=== PATIENT | male | born 1945 | race Hispanic/Latino ===

== ENCOUNTER 2018-07-13 05:57 | Emergency (ER) | payer OTHER ==
[2018-07-13 06:52] LABS: Absolute Lymphocytes (CBC) 0.9 K/uL (0.7-4.9); Absolute Monocytes 0.8 K/uL (0.1-1.3); Absolute Neutrophil 9.3 K/uL (1.8-8.0); Basophils % 0.4 % (0-1.3); Hematocrit 42.3 % (39.6-49.0); Lymphocytes % 8.1 % (15.3-44.8); MPV 8.9 fL (7.6-11.3); Monocytes % 7.3 % (3.3-12.3); RBC Red Blood Cell Count 4.97 M/uL (4.33-5.43)
[2018-07-13 07:02] LABS: Potassium 4.2 mmol/L (3.5-5.1)
[2018-07-13] MEDS ORDERED: NA CHLORIDE 0.9% 1,000 ML ONE (07:20)
--- NOTE | 2018-07-13 08:30 | RAD REPORT ---
EXAM DESCRIPTION: CT - Stone Protocol - 07/13/2018 8:04 am CLINICAL HISTORY: Flank pain. urinary retention COMPARISON: No comparisons TECHNIQUE: Axial images were obtained without oral or IV contrast. Lack of contrast limits solid org an and vascular assessment. The [id number] spans the entirety of the system partially obscuring uppermost abdomen and lung bases. Coronal reformatted images were obtained and reviewed. All CT scans are performed using dose optimization technique as appropriate and may include automated exposure control or mA/KV adjustment according to patient size. FINDINGS: The lower lung mckinley are clear. Imaged portions of the liver and spleen show no suspicious findings on non-contrast imaging. The panc reas and adrenal glands are normal. No pathologic lymphadenopathy in the abdomen or pelvis. No urinary tract stones or obstructive uropathy. Significant prostatomegaly seen. Shields catheter deco mpresses the urinary bladder. Mild inflammatory fat stranding is seen along the left aspect of the pe lvis. No bowel obstruction, free air, free fluid or abscess. Normal appendix noted.Moderate fat containing right inguinal hernia. No significant bony abnormality. Lumbar degenerative changes are present. IMPRESSION: Prominent prostatomegaly is present. No tract calculi seen.
[2018-07-13 08:56] LABS: Urine Amorphous Sediment 1+ /HPF (NONE SEEN); Urine Bacteria <20 /HPF (NONE SEEN); Urine Culture Reflex Order NOT NEEDED; Urine Mucus 1+ /HPF (NONE SEEN)
[2018-07-13 08:56] LABS: Urine Blood TRACE (NEG); Urine Glucose TRACE (NEG); Urine Protein NEGATIVE (NEG)
--- NOTE | 2018-07-13 08:59 | EDPHYS ---
Physician Documentation [facility] Name: Filemon Lundy Age: 72 yrs Sex: Male : 1945 Arrival Date: 07/13/2018 Time: 05:59 Bed 15 Private MD: Ollie Maxwell E ED Physician Dieter Calix HPI: 07/13 06:37 This 72 yrs old Male presents to ER via Ambulatory with complaints of Urinary kb Problem. 06:37 The patient presents with urinary symptoms, retention. Onset: The symptoms/episode kb began/occurred this morning. Modifying factors: The symptoms are alleviated by nothing, the symptoms are aggravated by pressure. Associated signs and symptoms: Pertinent positives: abdominal pain, Pertinent negatives: constipation, diarrhea, dysuria, fever, hematuria, nausea, vomiting. Severity of symptoms: At their worst the symptoms were moderate, in the emergency department the symptoms are unchanged. The patient has not experienced similar symptoms in the past. The patient has not recently seen a physician. Historical: - Allergies: 06:10 No Known Allergies; rr5 - Home Meds: 06:10 bp medication, cannot recall the name [Active]; rr5 - PMHx: 06:10 Hypertension; rr5 - PSHx: 06:10 Hernia repair; rr5 - Immunization history:: Adult Immunizations up to date. - Social history:: Smoking status: Patient/guardian denies using tobacco, Patient uses alcohol, occasionally. Patient/guardian denies using street drugs. - Ebola Screening: : Patient negative for fever greater than or equal to 101.5 degrees Fahrenheit, and additional compatible Ebola Virus Disease symptoms Patient denies exposure to infectious person Patient denies travel to an Ebola-affected area in the 21 days before illness onset. ROS: 06:36 Constitutional: Negative for fever, chills, and weight loss, ENT: Negative for injury, kb pain, and discharge, Neck: Negative for injury, pain, and swelling, Cardiovascular: Negative for chest pain, palpitations, and edema, Respiratory: Negative for shortness of breath, cough, wheezing, and pleuritic chest pain, Abdomen/GI: Negative for abdominal pain, nausea, vomiting, diarrhea, and constipation, MS/Extremity: Negative for injury and deformity, Skin: Negative for injury, rash, and discoloration, Neuro: Negative for headache, weakness, numbness, tingling, and seizure. 06:36 : Positive for difficulty urinating, unable to urinate since last night. Exam: 06:35 Constitutional: This is a well developed, well nourished patient who is awake, alert, kb and in no acute distress. Head/Face: Normocephalic, atraumatic. ENT: Nares patent. No nasal discharge, no septal abnormalities noted. Tympanic membranes are normal and external auditory canals are clear. Oropharynx with no redness, swelling, or masses, exudates, or evidence of obstruction, uvula midline. Mucous membranes moist. Neck: Trachea midline, no thyromegaly or masses palpated, and no cervical lymphadenopathy. Supple, full range of motion without nuchal rigidity, or vertebral point tenderness. No Meningismus. Chest/axilla: Normal chest wall appearance and motion. Nontender with no deformity. No lesions are appreciated. Cardiovascular: Regular rate and rhythm with a normal S1 and S2. No gallops, murmurs, or rubs. Normal PMI, no JVD. No pulse deficits. Respiratory: Lungs have equal breath sounds bilaterally, clear to auscultation and percussion. No rales, rhonchi or wheezes noted. No increased work of breathing, no retractions or nasal flaring. Back: No spinal tenderness. No costovertebral tenderness. Full range of motion. Skin: Warm, dry with normal turgor. Normal color with no rashes, no lesions, and no evidence of cellulitis. MS/ Extremity: Pulses equal, no cyanosis. Neurovascular intact. Full, normal range of motion. Neuro: Awake and alert, GCS 15, oriented to person, place, time, and situation. Cranial nerves II-XII grossly intact. Motor strength 5/5 in all extremities. Sensory grossly intact. Cerebellar exam normal. Normal gait. 06:35 Abdomen/GI: Inspection: distension, that is mild, in the suprapubic area, Bowel sounds: normal, in all quadrants, Palpation: soft, in all quadrants, moderate abdominal tenderness, in the suprapubic area. Vital Signs: 06:10 BP 169 / 102; Pulse 98; Resp 19; Temp 98.1; Pulse Ox 99% ; Weight 99.79 kg; Height 5 rr5 ft. 9 in. (175.26 cm); Pain 10/10; 06:30 BP 152 / 90; Pulse 84; Resp 17; Pulse Ox 99% ; rr5 06:42 BP 146 / 75; Pulse 77; Resp 16; Pulse Ox 96% ; rr5 06:42 Pain 0/10; rr5 06:53 BP 124 / 79; Pulse 80; Resp 17; Pulse Ox 96% on R/A; Pain 0/10; rr5 06:10 Body Mass Index 32.49 (99.79 kg, 175.26 cm) rr5 MDM: 06:01 Patient medically screened. kb 06:05 Data reviewed: vital signs, nurses notes. Data interpreted: Pulse oximetry: on room air kb is 98 %. Interpretation: normal. 07:02 ED course: Pt reports relief of pain after herrera placement and 900ml of urine output. kb 08:57 Counseling: I had a detailed discussion with the patient and/or guardian regarding: the kb historical points, exam findings, and any diagnostic results supporting the discharge/admit diagnosis, lab results, radiology results, the need for outpatient follow up, a urologist, to return to the emergency department if symptoms worsen or persist or if there are any questions or concerns that arise at home. 07/13 06:06 Order name: CBC with Diff; Complete Time: 06:54 kb 07/13 06:06 Order name: Basic Metabolic Panel; Complete Time: 07:03 kb 07/13 06:30 Order name: Urine Microscopic Only kb 07/13 06:30 Order name: Urine Microscopic Only; Complete Time: 08:57 EDMS 07/13 06:33 Order name: Urine Dipstick--Ancillary (enter results); Complete Time: 08:57 ar5 07/13 07:43 Order name: CT Stone Protocol; Complete Time: 08:38 kb 07/13 06:05 Order name: Bladder Scanner; Complete Time: 06:40 kb 07/13 06:06 Order name: Urine Dipstick-Ancillary (obtain specimen); Complete Time: 06:40 kb 07/13 06:06 Order name: IV Start; Complete Time: 06:40 kb 07/13 06:19 Order name: Herrera; Complete Time: 06:40 kb Administered Medications: 07:09 Drug: NS 0.9% 1000 ml Route: IV; Rate: 1000 ml; Site: right forearm; rr5 Disposition: 07/13/18 08:57 Discharged to Home. Impression: Retention of urine, Enlarged prostate. - Condition is Stable. - Discharge Instructions: Herrera Catheter Care, Adult, [id number]. - Medication Reconciliation Form, Thank You Letter, Antibiotic Education, Prescription Opioid Use form. - Follow up: Emergency Department; When: As needed; Reason: Worsening of condition. Follow up: Fuad Moran MD; When: 1 - 2 days; Reason: Recheck today's complaints. - Notes: Call Dr Moran's office today to schedule an appt. Addendum: 07/15/2018 07:04 Co-signature as Attending Physician, Dieter Calix MD. r n Signatures: Dispatcher [employer] EDMS Yareli Vazquez, JET DYEING MACHINE TENDER-C JET DYEING MACHINE TENDER-Ckb Dieter Calix MD MD rn Pooja Rowland RN RN Davon Hendrickson RN RN rr5 Corrections: (The following items were deleted from the chart) 07/13 10:21 08:57 07/13/2018 08:57 Discharged to Home. Impression: Retention of urine; Enlarged ph prostate. Condition is Stable. Forms are Medication Reconciliation Form, Thank You Letter, Antibiotic Education, Prescription Opioid Use. Follow up: Emergency Department; When: As needed; Reason: Worsening of condition. Follow up: Fuad Moran; When: 1 - 2 days; Reason: Recheck today's complaints. kb
--- NOTE | 2018-07-13 08:59 | ER ---
Nurse's Notes [facility] Name: Filemon Lundy Age: 72 yrs Sex: Male : 1945 Arrival Date: 07/13/2018 Time: 05:59 Bed 15 Private MD: Ollie Maxwell E Diagnosis: Retention of urine;Enlarged prostate Presentation: 07/13 06:10 Presenting complaint: Patient states: i cannot pee, started last night. first time rr5 happened to me. 06:10 Transition of care: patient was not received from another setting of care. Onset of rr5 symptoms was July 12, 2018. Risk Assessment: Do you want to hurt yourself or someone else? Patient reports no desire to harm self or others. Initial Sepsis Screen: Does the patient meet any 2 criteria? No. Patient's initial sepsis screen is negative. Does the patient have a suspected source of infection? No. Patient's initial sepsis screen is negative. Care prior to arrival: None. 06:10 Method Of Arrival: Ambulatory rr5 06:10 Acuity: MEGAN 3 rr5 Historical: - Allergies: 06:10 No Known Allergies; rr5 - Home Meds: 06:10 bp medication, cannot recall the name [Active]; rr5 - PMHx: 06:10 Hypertension; rr5 - PSHx: 06:10 Hernia repair; rr5 - Immunization history:: Adult Immunizations up to date. - Social history:: Smoking status: Patient/guardian denies using tobacco, Patient uses alcohol, occasionally. Patient/guardian denies using street drugs. - Ebola Screening: : Patient negative for fever greater than or equal to 101.5 degrees Fahrenheit, and additional compatible Ebola Virus Disease symptoms Patient denies exposure to infectious person Patient denies travel to an Ebola-affected area in the 21 days before illness onset. Screenin:40 Abuse screen: Denies threats or abuse. Denies injuries from another. Nutritional rr5 screening: No deficits noted. Tuberculosis screening: No symptoms or risk factors identified. Fall Risk IV access (20 points). Total Salcedo Fall Scale indicates No Risk (0-24 pts). Assessment: 06:10 General: Appears in no apparent distress. uncomfortable, Behavior is calm, cooperative, rr5 appropriate for age. Pain: Complains of pain in suprapubic area Pain does not radiate. Pain currently is 10 out of 10 on a pain scale. Quality of pain is described as aching, Pain began gradually, Is continuous. Neuro: Level of Consciousness is awake, alert, obeys commands, Oriented to person, place, time, situation, Appropriate for age. Cardiovascular: Capillary refill < 3 seconds Patient's skin is warm and dry. Respiratory: Airway is patent is compromised Respiratory effort is even, unlabored, Respiratory pattern is regular, symmetrical. GI: No signs and/or symptoms were reported involving the gastrointestinal system. : Urine is orange colored Reports inability to void. EENT: No signs and/or symptoms were reported regarding the EENT system. Derm: Skin is intact, Skin temperature is warm. Musculoskeletal: Capillary refill < 3 seconds, Range of motion: intact in all extremities. 06:40 Reassessment: Patient appears in no apparent distress at this time. Patient is alert, rr5 oriented x 3, equal unlabored respirations, skin warm/dry/pink. no more pain as verbalized by the patient Patient denies pain at this time. Patient states feeling better. Patient states symptoms have improved. 08:00 Reassessment: Patient appears in no apparent distress at this time. Patient is alert, ph oriented x 3, equal unlabored respirations, skin warm/dry/pink. 09:00 Reassessment: Patient appears in no apparent distress at this time. Patient is alert, ph oriented x 3, equal unlabored respirations, skin warm/dry/pink. Approx 1500 mL collected from drainage bag Patient states feeling better. Patient states symptoms have improved. 10:17 Reassessment: Patient appears in no apparent distress at this time. Patient is alert, ph oriented x 3, equal unlabored respirations, skin warm/dry/pink. Shields changed to leg bag, pt instructed to call Dr Moran's office today for follow-up, also educated on catheter care and when to return to ED if necessary Patient states feeling better. Patient states symptoms have improved. Vital Signs: 06:10 BP 169 / 102; Pulse 98; Resp 19; Temp 98.1; Pulse Ox 99% ; Weight 99.79 kg; Height 5 rr5 ft. 9 in. (175.26 cm); Pain 10/10; 06:30 BP 152 / 90; Pulse 84; Resp 17; Pulse Ox 99% ; rr5 06:42 BP 146 / 75; Pulse 77; Resp 16; Pulse Ox 96% ; rr5 06:42 Pain 0/10; rr5 06:53 BP 124 / 79; Pulse 80; Resp 17; Pulse Ox 96% on R/A; Pain 0/10; rr5 06:10 Body Mass Index 32.49 (99.79 kg, 175.26 cm) rr5 ED Course: 05:59 Patient arrived in ED. do 05:59 Ollie Maxwell MD is Private Physician. do 06:01 Yareli Vazquez FNP-C [facility]. kb 06:01 Dieter Calix MD is Attending Physician. kb 06:10 Patient has correct armband on for positive identification. Placed in gown. Bed in low rr5 position. Call light in reach. Side rails up X2. Pulse ox on. NIBP on. Warm blanket given. 06:12 Davon Valdez, RN is Primary Nurse. rr5 06:13 Triage completed. rr5 06:15 Bladder scan completed. 649ml. rr5 06:20 Shields cath inserted, using sterile technique, 16 Fr., by mn, balloon inflated, to rr5 gravity drainage, urine specimen collected. returned clear orange. Patient tolerated well. 06:30 Inserted saline lock: 20 gauge in right forearm, using aseptic technique. Blood rr5 collected. 06:40 Urine Microscopic Only Sent. rr5 08:06 CT Stone Protocol In Process Unspecified. EDMS 08:57 Fuad Moran MD is Referral Physician. kb 09:03 Arm band placed on. ph 10:20 No provider procedures requiring assistance completed. IV discontinued, intact, ph bleeding controlled, No redness/swelling at site. Pressure dressing applied. Administered Medications: 07:09 Drug: NS 0.9% 1000 ml Route: IV; Rate: 1000 ml; Site: right forearm; rr5 Intake: 06:59 orange urine rr5 Output: 06:59 Urine: 900ml (Shields); Total: 900ml. rr5 06:59 orange urine rr5 Outcome: 08:57 Discharge ordered by . kb 10:21 Discharged to home ambulatory, with family. ph 10:21 Condition: improved 10:21 Discharge instructions given to patient, family, Instructed on discharge instructions, follow up and referral plans. catheter care Demonstrated understanding of instructions, follow-up care. 10:21 Patient left the ED. ph Signatures: Dispatcher [employer] Yareli Yanez, JEEVAN LORENZ-Pooja Vela RN RN Emily Workman Raymond RN RN rr5
== END 2018-07-13 10:21 | disposition home or self-care (01) ==
LOC: ER 05:57
DX: N40.1 Benign prostatic hyperplasia with lower urinary tract symptoms (principal); R33.9 Retention of urine, unspecified; I10 Essential (primary) hypertension
CPT/HCPCS: 85025; 80048; 36415; 76377; 74176; 51702; 99284; J7030; 81003; 81015

== ENCOUNTER 2020-02-02 10:00 | Emergency (ER) | payer OTHER ==
--- OUTSIDE RECORDS SUMMARY | 2020-02-02 10:02 | XMS REPORT | Continuity of Care Document ---
:1945 Author Organization [facility] t Address [address] [place] [address] Care Team Providers Name Role Phone Unavailable Unavailable Unavailable Problems This patient has no known problems. Allergies, Adverse Reactions, Alerts This patient has no known allergies or adverse reactions. Medications Ordered Filled Start Stop Current Ordering Indication Dosage Frequency Signature Comments Components Source Medication Medication Date Date Medication? Clinician (SIG) Name Name Sofi Farah 2019- No [facility]ette [facility] [place] [facility] Bactrim Bactrim Yes Lynette [address] [facility] [place] [facility] Cefdinir Cefdinir Yes Lynette as [facility] [place] [facility] Tamsulosin Tamsulosin Yes Lynette [address] [facility] HCl HCl Leeann kes - [facility] Procedures This patient has no known procedures. Encounters Start End Encounter Admission Attending Care Care Encounter Source Date/Time Date/Time Type Type Clinicians Facility Department ID 2020-01-27 2020-01-27 Outpatient [facility] [id number] [facility] 2019-09-13 2019-09-13 [facility] [id number] [facility] 10[facility]00 10[facility]00 t Specialty/U Jacquie kes - [facility] 2019-09-02 2019-09-02 [facility] [id number] [facility] 09:30[facility]00 09:30:00 t Specialty/U Jacquie kes - [facility] Outpat[facility] ent Clinics 2019-09-01 2019-09-01 [facility] [id number] [facility] 15:24:00 15:24:00 t Specialty/U Jacquie kes - [facility] Outpat[facility] ent Clinics 2019-09-01 2019-09-01 [facility] [id number] [facility] 10:49:00 10:49:00 t Specialty/U Jacquie kes - [facility] l Clinic Outpati ent Clinics 2019-08-30 2019-08-30 [facility] [id number] [facility] 13:15:00 13:15:00 t Specialty/U Jacquie kes - [facility] l Clinic Outpati ent Clinics 2019-07-05 2019-07-05 [facility] [id number] [facility] 13:30:00 13:30:00 t Specialty/U Jacquie kes - [facility] l Clinic Outpati ent Clinics 2019-06-28 2019-06-28 [facility] [id number] [address] 10:06:00 10:06:00 t Specialty/U Jacquie kes - [facility] l Clinic Outpati ent Clinics 2019-05-17 2019-05-17 [facility] [id number] [facility] [address] 13:00:00 13:00:00 t Specialty/U Jacquie kes - [facility] l Clinic Outpati ent Clinics Results This patient has no known results.
--- OUTSIDE RECORDS SUMMARY | 2020-02-02 10:03 | XMS REPORT ---
:1945 Author Organization [facility] Address [address] [place] [address] Care Team Providers Name Role Phone Leeann Mccormack [phone] PROBLEMS No Information ALLERGIES No Known Allergies ENCOUNTERS from 1945 to 2020-01-27 Encounter Location Date Provider Diagnosis [facility] [address] [facility] Dec, Lynette Bradshaw Incomple te bladder Specialty/Urology [address] [facility] R33.[address] [facility] [id number] IMMUNIZATIONS No Information SOCIAL HISTORY Sex Assigned At : Social History Observation Description Sex Assigned At Unknown REASON FOR REFERRAL No Information VITAL SIGNS No information MEDICATIONS Medication SIG (Take, Route, Frequency, Start Date End Date Status Duration) Cefdinir 300 MG as directed Orally BID for 7 days Active Bactrim 400-80 MG 1 tablet Orally Once a day for 10 Active day(s) Tamsulosin HCl 0.4 MG 1 capsule Orally Once a day for 90 Active days PROCEDURES No Information RESULTS No Results REASON FOR VISIT No Information MEDICAL (GENERAL) HISTORY Type Description Date Medical History HTN Surgical History Hernia Repair 2008 Goals Section No Information Health Concerns No Information MEDICAL EQUIPMENT No Information MENTAL STATUS No Information FUNCTIONAL STATUS No Information ASSESSMENTS Encounter Date Diagnosis Notes Dec, Incomplete bladder emptying (ICD-10 - R3 3.9) PLAN OF TREATMENT Medication Medication Name Sig Start Date Stop Date Tamsulosin HCl 0.4 MG 1 capsule Orally Once a day for 90 days Insurance Providers Payer Name Payer Payer Insured Name Patient Coverage Covera ge Address Phone Relationship to Start Date End Date Insured [employer] [phone] Filemon Lundy [facility] [id number] [facility] [place] Replace [phone]
[2020-02-02 11:06] LABS: Absolute Lymphocytes (CBC) 2.2 K/uL (0.7-4.9); Basophils % 1.1 % (0-1.3); Hematocrit 43.7 % (39.6-49.0); Lymphocytes % 25.3 % (15.3-44.8); MPV 8.8 fL (7.6-11.3); RBC Red Blood Cell Count 5.25 M/uL (4.33-5.43)
[2020-02-02 11:08] LABS: Protime INR 0.97
[2020-02-02 11:12] LABS: Potassium 4.2 mmol/L (3.5-5.1)
--- NOTE | 2020-02-02 11:17 | RAD REPORT ---
EXAM DESCRIPTION: CT - Head Brain Wo Cont - 02/02/2020 11:07 am CLINICAL HISTORY: confusion COMPARISON: No comparisons TECHNIQUE: Axial 5 mm thick images of the head were obtained without IV contrast. All CT scans are performed using dose optimization technique as appropriate and may include automated exposure control or mA/KV adjustment according to patient size. FINDINGS: A 3.5 centimeter diameter left parietal intraparenchymal hematoma is present. A separate o r discrete mass is not identifiable. There is localized mass effect but no midline shift. No other ar ea of parenchymal hemorrhage. No cortical infarction, cortical edema or sulcal effacement. Atrophy ch anges are minimal. Ventricles are in proportion. No abnormal extra-axial fluid collections. Mastoid air cells are clear. Ethmoid air cell and sphenoid sinus mucosal thickening seen. There are c hronic sinusitis changes of the sphenoid sinus. No acute globe finding. No acute bony findings. Findings telephoned to the referring physician 11:13 a.m. IMPRESSION: A 3.5 centimeter intraparenchymal hematoma is present within the left parietal lobe. A discrete or separate mass or vascular malformation is not identifiable.
[2020-02-02 11:31] LABS: Urine Bacteria <20 /HPF (NONE SEEN); Urine RBC <5 /HPF (NONE SEEN)
[2020-02-02 11:32] LABS: Urine Culture Reflex Order NOT NEEDED; Urine Mucus 2+ /HPF (NONE SEEN)
--- NOTE | 2020-02-02 11:46 | ER ---
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 I was trying to write a note, and my body just wouldn't do it." Pt and states that this has been ongoing since Friday. Denies pain, numbness and/ or tingling.". Coronavirus screen: Client denies travel out of the [place] in the last 14 days. Ebola Screen: Patient denies exposure to infectious person. Patient denies travel to an Ebola-affected area in the 21 days before illness onset. Initial Sepsis Screen: Does the patient meet any 2 criteria? No. Patient's initial sepsis screen is negative. Does the patient have a suspected source of infection? No. Patient's initial sepsis screen is negative. Risk Assessment: Do you want to hurt yourself or someone else? Patient reports no desire to harm self or others. Onset of symptoms was January 29, 2020. 10:06 Method Of Arrival: Ambulatory ss 10:06 Acuity: MEGAN 3 ss 11:20 Acuity: MEGAN 2 ca1 Historical: - Allergies: 10:09 No Known Allergies; ss - PMHx: 10:09 Hypertension; High Cholesterol; enlarged prostate; ss - PSHx: 10:09 Hernia repair; ss - Immunization history:: Adult Immunizations up to date. - Social history:: Smoking status: Patient denies any tobacco usage or history of. - Family history:: not pertinent. - Hospitalizations: : No recent hospitalization is reported. Screenin:15 Abuse screen: Denies threats or abuse. Denies injuries from another. Nutritional ca1 screening: No deficits noted. Tuberculosis screening: No symptoms or risk factors identified. Fall Risk IV access (20 points). Assessment: 10:15 General: Appears in no apparent distress. comfortable, Behavior is calm, cooperative, ca1 appropriate for age. Pain: Denies pain. Neuro: Level of Consciousness is awake, alert, obeys commands, Oriented to person, place, time, situation, Appropriate for age. Cardiovascular: Heart tones S1 S2 present Capillary refill < 3 seconds Patient's skin is warm and dry. Rhythm is sinus rhythm. Respiratory: Airway is patent Respiratory effort is even, unlabored, Respiratory pattern is regular, symmetrical, Breath sounds are clear bilaterally. GI: Abdomen is flat, non-distended, Bowel sounds present X 4 quads. Abd is soft and non tender X 4 quads. : No signs and/or symptoms were reported regarding the genitourinary system. EENT: No signs and/or symptoms were reported regarding the EENT system. Derm: Skin is intact, is healthy with good turgor, Skin is pink, warm \\T\\ dry. Musculoskeletal: Circulation, motion, and sensation intact. Capillary refill < 3 seconds. 11:02 Reassessment: Pt to MRI and CT at this time. ca1 11:38 Reassessment: Patient appears in no apparent distress at this time. Patient and/or ca1 family updated on plan of care and expected duration. Pain level reassessed. Patient is alert, oriented x 3, equal unlabored respirations, skin warm/dry/pink. 12:00 Reassessment: BP at 128/73. Cardene drip put on hold per protocol. ca1 12:00 Reassessment: Called report to SILVIO Hernandez. ca1 12:10 Reassessment: BP at 150/83. Cardene drip resumed per protocol. ca1 12:52 Reassessment: Patient appears in no apparent distress at this time. No changes from ca1 previously documented assessment. Patient and/or family updated on plan of care and expected duration. Pain level reassessed. Patient is alert, oriented x 3, equal unlabored respirations, skin warm/dry/pink. Vital Signs: 10:06 BP 159 / 91; Pulse 96; Resp 17; Temp 98.3(O); Pulse Ox 99% on R/A; Weight 95.25 kg; ss Height 5 ft. 9 in. (175.26 cm); Pain 0/10; 11:38 BP 144 / 68; Pulse 76; Resp 18 S; Pulse Ox 98% on R/A; ca1 11:50 BP 134 / 81; Pulse 76; Resp 17 S; Pulse Ox 99% on R/A; ca1 12:00 BP 128 / 73; Pulse 79; Resp 16 S; Pulse Ox 99% on R/A; ca1 12:10 BP 154 / 83; Pulse 80; Resp 15 S; Pulse Ox 100% on R/A; ca1 12:20 BP 140 / 81; Pulse 76; Resp 16 S; Pulse Ox 99% on R/A; ca1 12:30 BP 143 / 72; Pulse 68; Resp 16 S; Pulse Ox 99% on R/A; ca1 12:40 BP 143 / 72; Pulse 68; Resp 16 S; Pulse Ox 99% on R/A; ca1 12:50 BP 134 / 82; Pulse 68; Resp 17 S; Pulse Ox 98% on R/A; ca1 10:06 Body Mass Index 31.01 (95.25 kg, 175.26 cm) ss Alfredo Coma Score: 11:38 Eye Response: spontaneous(4). Verbal Response: oriented(5). Motor Response: obeys ca1 commands(6). Total: 15. NIH Stroke Scale Scores: 11:31 NIHSS Score: 0 ostomy rn Course: 10:01 Patient arrived in ED. as 10:08 Triage completed. ss 10:09 Arm band placed on right wrist. ss 10:15 Patient has correct armband on for positive identification. Placed in gown. Bed in low ca1 position. Call light in reach. Side rails up X2. potline monitor on. Pulse ox on. NIBP on. Warm blanket given. 10:16 Dieter Calix MD is Attending Physician. rn 10:34 Renee Marie, SILVIO is Primary Nurse. ca1 10:46 Initial lab(s) drawn, by sd, sent to lab. Inserted saline lock: 20 gauge in right ca1 antecubital area, using aseptic technique. Blood collected. 11:05 CT Head Brain wo Cont In Process Unspecified. EDMS 11:17 Brain Wo Cont MRI In Process Unspecified. EDMS 11:36 initiated transfer to [facility]. bd 11:45 Inserted saline lock: 22 gauge in right forearm, using aseptic technique. ca1 12:53 No provider procedures requiring assistance completed. Patient transferred, IV remains ca1 in place. Administered Medications: 11:40 Drug: niCARdipine (25mg/250ml) 2.5 mg/hr Route: IV; Rate: calculated rate; Site: right ca1 antecubital; 12:50 Follow up: Response: No adverse reaction; Blood pressure is lowered; IV Status: ca1 Infusion continued upon transfer Outcome: 11:45 ER care complete, transfer ordered by . silvio 12:53 Transferred by ground EMS to [facility], Transfer form completed. ca1 X-rays sent w/ patient. 12:53 Condition: stable 12:53 Instructed on the need for transfer. 12:55 Patient left the ED. ca1 NIH Stroke Scale - NIH Stroke Score Date: 02/02/2020 Time: 11:31 Total Score = 0 1a. Level of Consciousness (LOC) - 0(Alert) 1b. Level of Consciousness (LOC) (Year \\T\\ Age) - 0(Both) 1c. LOC Commands (Open \\T\\ Closes Eyes/Computer Systems Consultant) - 0(Both) 2. Best Gaze (Lateral Gaze Paresis) - 0(Normal) 3. Visual Field Loss - 0(No visual loss) 4. Facial Palsy - 0(Normal) 5a. Left Arm: Motor (10-second hold) - 0(No drift) 5b. Right Arm: Motor (10-second hold) - 0(No drift) 6a. Left Leg: Motor (5-second hold - always test supine) - 0(No drift) 6b. Right Leg: Motor (5-second hold - always test supine) - 0(No drift) 7. Limb Ataxia (finger/nose \\T\\ heel/melchor - test with eyes open) - 0(Absent) 8. Sensory Loss (pinprick arms/legs/face) - 0(Normal) 9. Best Language: Aphasia (description/naming/reading) - 0(No aphasia) 10. Dysarthria (speech clarity - read or repeat words) - 0(Normal) 11. Extinction and Inattention (visual/tactile/auditory/spatial/personal) - 0(No abnormality) Initials: rn Signatures: Dispatcher [employer] EDMS Ayana Dubois Amelia as Nieto, Roman, MD MD rn Smirch, Shelby, RN RN ss Acob, Cheryl, RN RN ca1 Corrections: (The following items were deleted from the chart) 12:08 12:00 Reassessment: BP at 128/73. Cardene drip put on hold ca1 ca1
--- NOTE | 2020-02-02 11:46 | EDPHYS ---
Physician Documentation [facility] Name: Filemon Lundy Age: 74 yrs Sex: Male : 1945 Arrival Date: 02/02/2020 Time: 10:01 Bed 14 Private MD: ED Physician Dieter Calix HPI: 02/01 11:28 This 74 yrs old Male presents to ER via Ambulatory with complaints of Doesn't rn Feel Right. 11:41 The patient's problem is reported as altered mental status, confused. Onset: The rn symptoms/episode began/occurred 4 day(s) ago. Duration: The episodes are intermittent. The symptoms are alleviated by nothing. The symptoms are aggravated by nothing. Severity of symptoms: At their worst the symptoms were mild in the emergency department the symptoms are unchanged. The patient has not experienced similar symptoms in the past. Reports since Friday has been having difficulty performing simple tasks, like making coffee and working water faucet, denies focal weakness/numbness/vision changes/speech changes. NO trauma. No blood thinners. . Historical: - Allergies: 10:09 No Known Allergies; ss - PMHx: 10: Hypertension; High Cholesterol; enlarged prostate; ss - PSHx: 10:09 Hernia repair; ss - Immunization history:: Adult Immunizations up to date. - Social history:: Smoking status: Patient denies any tobacco usage or history of. - Family history:: not pertinent. - Hospitalizations: : No recent hospitalization is reported. ROS: 11:41 Constitutional: Negative for fever, chills, and weight loss, Eyes: Negative for injury, rn pain, redness, and discharge, Neck: Negative for injury, pain, and swelling, Cardiovascular: Negative for chest pain, palpitations, and edema, Respiratory: Negative for shortness of breath, cough, wheezing, and pleuritic chest pain, Abdomen/GI: Negative for abdominal pain, nausea, vomiting, diarrhea, and constipation, MS/Extremity: Negative for injury and deformity, Skin: Negative for injury, rash, and discoloration, Neuro: Negative for headache, weakness, numbness, tingling, and seizure. Exam: 11:41 Radiologist reports: 3.5 cm left parietal hematoma rn 11:41 Constitutional: This is a well developed, well nourished patient who is awake, alert, and in no acute distress. Head/Face: Normocephalic, atraumatic. Eyes: Pupils equal round and reactive to light, extra-ocular motions intact. Lids and lashes normal. Conjunctiva and sclera are non-icteric and not injected. Cornea within normal limits. Periorbital areas with no swelling, redness, or edema. Cardiovascular: Regular rate and rhythm. No pulse deficits. Respiratory: No increased work of breathing, no retractions or nasal flaring. Abdomen/GI: Soft, non-tender Skin: Warm, dry with normal turgor. Normal color with no rashes, no lesions, and no evidence of cellulitis. MS/ Extremity: Pulses equal, no cyanosis. Neurovascular intact. Full, normal range of motion. Equal circumference. Neuro: Awake and alert, GCS 15, oriented to person, place, time, and situation. Cranial nerves II-XII grossly intact. Motor strength 5/5 in all extremities. Sensory grossly intact. Cerebellar exam normal. Normal gait. Vital Signs: 10:06 BP 159 / 91; Pulse 96; Resp 17; Temp 98.3(O); Pulse Ox 99% on R/A; Weight 95.25 kg; ss Height 5 ft. 9 in. (175.26 cm); Pain 0/10; 11:38 BP 144 / 68; Pulse 76; Resp 18 S; Pulse Ox 98% on R/A; ca1 11:50 BP 134 / 81; Pulse 76; Resp 17 S; Pulse Ox 99% on R/A; ca1 12:00 BP 128 / 73; Pulse 79; Resp 16 S; Pulse Ox 99% on R/A; ca1 12:10 BP 154 / 83; Pulse 80; Resp 15 S; Pulse Ox 100% on R/A; ca1 12:20 BP 140 / 81; Pulse 76; Resp 16 S; Pulse Ox 99% on R/A; ca1 12:30 BP 143 / 72; Pulse 68; Resp 16 S; Pulse Ox 99% on R/A; ca1 12:40 BP 143 / 72; Pulse 68; Resp 16 S; Pulse Ox 99% on R/A; ca1 12:50 BP 134 / 82; Pulse 68; Resp 17 S; Pulse Ox 98% on R/A; ca1 10:06 Body Mass Index 31.01 (95.25 kg, 175.26 cm) NIH Stroke Scale Scores: 11:31 NIHSS Score: 0 rn Alfredo Coma Score: 11:38 Eye Response: spontaneous(4). Verbal Response: oriented(5). Motor Response: obeys ca1 commands(6). Total: 15. MDM: 10:16 Patient medically screened. rn 11:28 ED course: Notified by Dr. Hernandez that patient has left parietal intraparenchymal rn bleed, 3.5 cm, no shift. Pt in MRI, plan to recheck BP and if still elevated will start cardene. . 11:44 Differential diagnosis: CVA, TIA, metabolic disorder. Data reviewed: vital signs, rn nurses notes, lab test result(s), radiologic studies, CT scan, MRI, and as a result, I will admit patient. Counseling: I had a detailed discussion with the patient and/or guardian regarding: the historical points, exam findings, and any diagnostic results supporting the discharge/admit diagnosis, lab results, radiology results, the need to transfer to another facility, for higher level of care, [facility] does not immediately have the required specialist. Admission orders: after a detailed discussion of the patient's condition and case, the admit orders are written by me. ED course: Accepted for transfer to neuro ICU at [facility] for hemorrhagic CVA left parietal lobe.. 02/01 10:25 Order name: CBC with Diff; Complete Time: 11:30 rn 02/01 10:25 Order name: Basic Metabolic Panel; Complete Time: 11:30 rn 02/01 10:25 Order name: Protime (+inr); Complete Time: 11:30 rn 02/01 10:25 Order name: Ptt, Activated; Complete Time: 11:30 rn 02/01 10:25 Order name: Urine Microscopic Only; Complete Time: 11:39 rn 02/01 11:06 Order name: Urine Dipstick--Ancillary (enter results) bd 02/01 10:25 Order name: IV Start; Complete Time: 10:51 rn 02/01 10:25 Order name: CT Head Brain wo Cont; Complete Time: 11:30 rn 02/01 10:25 Order name: Brain Wo Cont MRI rn 02/01 10:25 Order name: Urine Dipstick-Ancillary (obtain specimen); Complete Time: 11:02 rn 02/01 10:25 Order name: EKG; Complete Time: 10:25 rn 02/01 10:25 Order name: EKG - Nurse/Tech; Complete Time: 11:02 rn Administered Medications: 11:40 Drug: niCARdipine (25mg/250ml) 2.5 mg/hr Route: IV; Rate: calculated rate; Site: right ca1 antecubital; 12:50 Follow up: Response: No adverse reaction; Blood pressure is lowered; IV Status: ca1 Infusion continued upon transfer Disposition: 02/02/20 11:[address] [facility]. 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 - Reason for transfer: Higher level of care. - Accepting physician is . - Condition is Stable. - Problem is new. - Symptoms are unchanged. NIH Stroke Scale - NIH Stroke Score Date: 02/02/2020 Time: 11:31 Total Score = 0 1a. Level of Consciousness (LOC) - 0(Alert) 1b. Level of Consciousness (LOC) (Year \T\ Age) - 0(Both) 1c. LOC Commands (Open \T\ Closes Eyes/Assistant Farm Operations Manager) - 0(Both) 2. Best Gaze (Lateral Gaze Paresis) - 0(Normal) 3. Visual Field Loss - 0(No visual loss) 4. Facial Palsy - 0(Normal) 5a. Left Arm: Motor (10-second hold) - 0(No drift) 5b. Right Arm: Motor (10-second hold) - 0(No drift) 6a. Left Leg: Motor (5-second hold - always test supine) - 0(No drift) 6b. Right Leg: Motor (5-second hold - always test supine) - 0(No drift) 7. Limb Ataxia (finger/nose \T\ heel/melchor - test with eyes open) - 0(Absent) 8. Sensory Loss (pinprick arms/legs/face) - 0(Normal) 9. Best Language: Aphasia (description/naming/reading) - 0(No aphasia) 10. Dysarthria (speech clarity - read or repeat words) - 0(Normal) 11. Extinction and Inattention (visual/tactile/auditory/spatial/personal) - 0(No abnormality) Initials: rn Signatures: Dispatcher [employer] EDDieter Mckeon MD MD rn Smirch, Shelby, RN RN ss Renee Marie RN RN ca1 Corrections: (The following items were deleted from the chart) 12:55 11:45 02/02/2020 11:45 Transfer ordered to [address] 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 Reason for transfer: Higher level of care. Accepting physician is . Condition is Stable. Problem is new. Symptoms are unchanged. rn
[2020-02-02] MEDS ORDERED: Nicardipine/NS 25 MG/250 ML KIT IV ONE (11:51)
--- NOTE | 2020-02-02 12:12 | RAD REPORT ---
EXAM DESCRIPTION: MRI - Brain Wo Cont - 02/02/2020 11:29 am CLINICAL HISTORY: confusion, abnormal CT study with left parietal intraparenchymal hemorrhage COMPARISON: Head Brain Wo Cont dated 02/02/2020 TECHNIQUE: Sagittal T1-weighted images were obtained along with axial PD, heavily T2-weighted and T2 -FLAIR images. Axial DWI and ADC mapping sequences were also obtained along with coronal heavily T2-w eighted images. Coronal T2 hemo sequence obtained. FINDINGS: Approximately 4 centimeter left parietal intraparenchymal hemorrhage is present. On T1 malik ghted imaging the blood is primarily hyperintense. There are central areas of more isointense to brai n parenchyma. Surrounding rim of hypointense tissue seen. The surrounding rim is hyperintense on T2/I R sequencing. The intraparenchymal hemorrhage is heterogeneous Jb isointense to hyperintense on prot on density imaging and mostly hypointense on T2/T2 IR sequencing. The mass is hypointense on the diff usion weighted sequencing and heterogeneous on ADC mapping. Diffusion-weighted imaging shows no acute infarction. No underlying vascular malformation or brain pa renchymal mass identifiable. Localized mass effect and edema are present at the hemorrhage site. No m idline shift. Scattered mild chronic ischemic changes in the cerebral white matter. Atrophy is mild. Ventricles are in proportion to volume loss. Muhammad-matter/white matter junction is preserved. Signal v oids are seen as a normal finding in the major intracranial vessels. No globe or orbital content abnormality. No sella or supra sella Mastoid air cells are clear peer IMPRESSION: Left parietal lobe 4 centimeter intraparenchymal hemorrhage. No associated vascular malf ormation or mass lesions seen. No acute infarction on diffusion-weighted imaging. Patient has mild atrophy and mild chronic ischemic change.
[2020-02-02 13:23] VITALS: TEMP 98.3
[2020-02-02 13:40] VITALS: BP 134/82; O2SAT 98
[2020-02-02 15:34] LABS: Urine Blood NEGATIVE (NEG); Urine Glucose NEGATIVE (NEG); Urine Protein NEGATIVE (NEG); Urine Specific Gravity 1.025 (1.005-1.030)
--- NOTE | 2020-02-03 07:35 | EKG ---
Test Date: 2020-02-02 Test Time: 10:55:10 Pre K Teacher: SHEBA MEASUREMENT RESULTS: Intervals: Rate: 75 WA: 156 QRSD: 80 QT: 346 QTc: 386 [place]: P: 62 WA: 156 QRS: 24 T: 41 INTERPRETIVE STATEMENTS: Normal sinus rhythm Normal ECG No previous ECG available for comparison Electronically Signed On 02-03-20 07:32:34 DRONE PILOT by Jean Claude Huang
== END 2020-02-02 12:55 | disposition short-term general hospital (02) ==
LOC: ER 10:00
DX: I61.9 Nontraumatic intracerebral hemorrhage, unspecified (principal); R41.89 Other symptoms and signs involving cognitive functions and awareness; I10 Essential (primary) hypertension; E78.00 Pure hypercholesterolemia, unspecified
CPT/HCPCS: 36415; 70450; 70551; 80048; 81003; 81015; 85025; 85610; 85730; 93005; 96365; 99285

== ENCOUNTER 2023-06-03 06:02 | Observation (INO) | payer OTHER ==
[2023-05-29 10:18] LABS: Absolute Basophils 0.1 K/uL (0-0.5); Absolute Eosinophils 0.4 K/uL (0-0.5); Absolute Lymphocytes (CBC) 1.9 K/uL (0.7-4.9); Basophils % 0.8 % (0-1.3); Eosinophils % 4.2 % (0-4.4); Hematocrit 45.1 % (39.6-49.0); Hemoglobin 15.2 g/dL (13.6-17.9); Lymphocytes % 22.9 % (15.3-44.8); MCV 84.2 fL (80-100); MPV 8.8 fL (7.6-11.3); Platelets 171 thou/uL (152-406); RBC Red Blood Cell Count 5.35 M/uL (4.33-5.43)
[2023-05-29 10:30] LABS: Protime INR 1.01
[2023-05-29 10:46] LABS: Albumin 4.2 g/dL (3.4-5.0); Albumin/Globulin Ratio 1.1 (1.1-1.8); Anion Gap 7.2 mEq/L (5.0-15.0); Bilirubin Total 0.7 mg/dL (0.2-1.0); Potassium 5.2 mEq/L (3.5-5.1); Protein, Total 8.2 g/dL (6.4-8.2)
[2023-05-29 11:01] LABS: Specific Gravity 1.005 (1.005-1.030); Urine Bilirubin NEGATIVE (Negative); Urine Blood Negative (Negative); Urine Clarity Clear (Clear); Urine Color Colorless (Yellow); Urine Glucose NEGATIVE (Negative); Urine Protein NEGATIVE (Negative); Urine Urobilinogen Normal (Normal); Urine pH 6.5 (5.0-7.0)
--- NOTE | 2023-05-29 11:41 | RAD REPORT ---
EXAM DESCRIPTION: RAD - Chest Pa And Lat (2 Views) - 05/29/2023 10:12 am CLINICAL HISTORY: Pre op pending hip arthroplasty COMPARISON: No comparisons TECHNIQUE: PA and lateral views of the chest were obtained. FINDINGS: The lungs are clear. Heart size is normal and central vasculature is within normal limits. No pleural effusion or pneumothorax seen. No acute bony finding noted. IMPRESSION: No acute cardiopulmonary process.
--- NOTE | 2023-05-29 15:23 | EKG ---
Test Date: 2023-05-29 Test Time: 10:50:01 Computer Tape Librarian: TRACY MEASUREMENT RESULTS: Intervals: Rate: 61 MO: 156 QRSD: 78 QT: 374 QTc: 376 [place]: P: 47 MO: 156 QRS: 12 T: 55 INTERPRETIVE STATEMENTS: Normal sinus rhythm Septal infarct, age undetermined Abnormal ECG Compared to ECG 02/02/2020 10:55:10 Myocardial infarct finding now present Electronically Signed On 05-29-23 15:22:28 LOG WASHER by Jamin Leal
[2023-06-03] MEDS: BUPIVACAINE 0.75% (PF) 2 ML SP ONE (06:35)
[2023-06-03] MEDS: Ringers Lactate 1,000 ML IV ONE ×2 (06:35→09:03)
[2023-06-03] MEDS: MORPHINE SULFATE/PF 1 MG/ML (10 ML AMP) ONE (06:36)
[2023-06-03] MEDS ORDERED: ONDANSETRON 4 MG/2 ML VIAL ONE (06:46)
[2023-06-03] MEDS ORDERED: propofoL 200 MG/20 ML VIAL IV ONE (06:46)
[2023-06-03] MEDS ORDERED: LIDOCAINE 2% MPF 5 ML VIAL ONE (06:46)
[2023-06-03] MEDS ORDERED: EPINEPHRINE 1 MG/ML VIAL ONE (06:50)
[2023-06-03] MEDS ORDERED: LIDOCAINE 1% MPF 5 ML VIAL ONE (06:53)
[2023-06-03] MEDS: Oxycodone HCl/Acetaminophen 5/325 MG TAB ONE (06:53)
[2023-06-03] MEDS: GABAPENTIN 100 MG CAP ONE (06:53)
[2023-06-03] MEDS: ACETAMINOPHEN 500 MG TAB ONE (06:53)
[2023-06-03] MEDS: CELECOXIB 100 MG CAPSULE ONE (06:53)
[2023-06-03] MEDS ORDERED: EPHEDRINE SULF 50 MG/ML VIAL ONE ×2 (07:29→07:40)
[2023-06-03] MEDS: CEFAZOLIN SODIUM 2 GM/VIAL ONE (07:39)
[2023-06-03] MEDS: TRANEXAMIC ACID 1,000 MG/10 ML VIAL IV ONE (07:48)
--- NOTE | 2023-06-03 09:06 | RAD REPORT ---
EXAM DESCRIPTION: RAD - Hip Right 1 View - 06/03/2023 8:59 am CLINICAL HISTORY: TOTAL IN SURG COMPARISON: Hip Right 2 View dated 11/15/2022 FINDINGS/IMPRESSION: Two intraoperative radiographs performed demonstrating surgical placement of th e right hip arthroplasty. No fractures identified .
[2023-06-03] MEDS ORDERED: HYDROCODONE/APAP 7.5/325 MG TAB PO PRN (09:34)
[2023-06-03] MEDS ORDERED: ONDANSETRON 4 MG/2 ML VIAL IV PRN (09:34)
[2023-06-03] MEDS ORDERED: DOCUSATE NA 100 MG CAP PO PRN (09:34)
--- NOTE | 2023-06-03 09:34 | P.BOP ---
Preoperative diagnosis: right hip arhtritis Postoperative diagnosis: same Primary procedure: right hip arthoplasty Estimated blood loss: 150 ccs Anesthesia: General Transferred to: Recovery Room Condition: Good
[2023-06-03 10:33] LABS: Hematocrit 41.2 % (39.6-49.0); Hemoglobin 14.1 g/dL (13.6-17.9)
[2023-06-03 11:41] VITALS: BMI 31.0
--- NOTE | 2023-06-03 16:13 | P.CNS ---
Date of Consult: 06/03/23 Reason for Consult: Medical management Requesting Physician: Austin Pedro Chief Complaint: Right total hip arthroplasty History of Present Illness: Patient is a 77-year-old gentleman who came to the hospital with right hip arthr itis. Patient was taken to the OR and had a right total hip arthroplasty. Patient has done well postoperatively. Patient's history of hypertension, dyslipidemia, and benign prostatic hypertrophy. Patient will be admitted to the hospital for further evaluation. Patient is planning to do physical therapy at discharge as an outpatient. Continue with inpatient physical therapy, and we will see how patient progresses. Allergies No Known Allergies Allergy (Verified 05/29/23 09:33) Home Medications: Amlodipine Besylate 5 mg PO DAILY 05/29/23 Aspirin Chewable [Aspirin Chewable*] 81 mg PO DAILY 05/29/23 Dutasteride [Avodart] 0.5 mg PO DAILY 05/29/23 Montelukast Sodium [Singulair] 10 mg PO DAILY PRN 05/29/23 Simvastatin 20 mg PO DAILY 05/29/23 Tamsulosin HCl 1 cap PO DAILY 05/29/23 carvediloL [Coreg] 6.25 mg PO BID 05/29/23 - Past Medical/Surgical History Diabetic: No -: HTN -: HLD -: BPH -: mini stroke 2 years ago -: hernia repair (20 + years ago) - Family History Father Family History: Reviewed- Non-Contributory - Social History Smoking Status: Former smoker Alcohol use: No CD- Drugs: No Caffeine use: Yes Place of Residence: Home Review of Systems 10-point ROS is otherwise unremarkable Physical Examination Temp Pulse Resp BP Pulse Ox 96.5 F L 83 18 116/72 92 06/03/23 15:00 06/03/23 15:00 06/03/23 15:00 06/03/23 15:00 06/03/23 15:00 General: Alert, In no apparent distress, Oriented x3 HEENT: Atraumatic, PERRLA, Mucous membr. moist/pink, EOMI, Sclerae nonicteric Neck: Supple, 2+ carotid pulse no bruit, No LAD, Without JVD or thyroid abnormality Respiratory: Clear to auscultation bilaterally, Normal air movement Cardiovascular: Regular rate/rhythm, Normal S1 S2, No murmurs Gastrointestinal: Normal bowel sounds, Soft and benign, Non-distended, No tenderness Musculoskeletal: No clubbing, No tenderness, Swelling, Tenderness Integumentary: No rashes Neurological: Normal gait, Normal speech, Normal tone, Sensation intact, Cranial nerves 3-12 intact, Normal affect, Abnormal strength Lymphatics: No axilla or inguinal lymphadenopathy Laboratory Data (last 24 hrs) 06/03/23 10:24 Hgb 14.1 Hct 41.2 - Problems (1) Status post total hip replacement, right Current Visit: Yes Status: Acute (2) History of hypertension Current Visit: Yes Status: Acute (3) History of BPH Current Visit: Yes Status: Acute (4) Dyslipidemia Current Visit: Yes Status: Acute Conclusions/ Impression: Plan: 1. Continue with pain control and anticoagulation for DVT prophylaxis 2. Physical therapy evaluation 3. custodial to arrange for outpatient physical therapy 4. Strict blood pressure and statin therapy 5. Resume antiplatelet therapy in the morning 6. Continue with BPH treatment 7. GI DVT prophylaxis Critical Care: No Time Spent Managing Pts care (In Minutes): 45
[2023-06-03 16:50] LABS: Hemoglobin 14.1 g/dL (13.6-17.9)
[2023-06-03] MEDS: CEFAZOLIN 1 GM in NA CHLORIDE 0.9% 50 ML IVPB SCH (16:53)
--- NOTE | 2023-06-03 19:54 | OP ---
Date of Procedure: 06/03/2023 Surgeon: Austin Pedro MD Preoperative Diagnosis: Severe right hip arthritis. Postoperative Diagnosis: Severe right hip arthritis. Procedure: Right total hip arthroplasty using the [place] system. Estimated Blood Loss: 150 cc. Complications: There were no complications. Indications For Operation: Mr. Lundy is a 77-year-old male who has clearance for a horribly painful right hip with loss of motion and changes on x-rays, which were [id number] and marked destruction o f the hip. The risks, benefits, and alternatives to total hip arthroplasty has been discussed with girish traylor. He states he understands things as presented and wishes to proceed. Description Of Procedure: The patient was taken to the operating room and a spinal was performed by Anesthesia. This followed by placement of a Shields catheter. General anesthesia was then obtained by Anesthesia staff. He was then rolled left side down and appropriately positioned using hip position ers. After this, the right lower extremity was then prepped and draped in usual sterile fashion for procedure. A standard posterolateral incision was taken down carefully through skin and soft tissues . Meticulous hemostasis being maintained using Bovie electrocautery. This leads down to the fascia. A small dov was made in the fascia, which allowed for palpation of gluteal tendon, which was ensur ed that we were in the correct position. This was then followed to approximately until near the tip of the greater trochanter where the gluteus muscles were encountered. They were then spread using fi nger pressure. The sciatic nerve was protected as the Charnley was placed and hemostasis was assured . Following this, the external rotators and capsule were then taken down carefully and tagged for la ter repair. The hip was then dislocated and a rather standard neck cut was performed. The head is q uite large, being approximately a size 57. The acetabulum was inspected and all soft tissue was mireya cade from the acetabulum as well as the labrum. After this, it was then sequentially reamed to a size 59 where I did have bleeding bone. The cup was then placed in appropriate position. After this, at tention was then turned to the femur where the metal box maker was used to lateralize followed by the natalie l finding reamer. The canal itself appeared to be quite tight even with the canal finding reamer. C are was taken to avoid placing it in varus and it was then broached up to a size 2, which appeared to be quite tight and decision was made to move forward with an x-ray. The x-ray shows that the cup wa s in good position. However, the stem could be slightly larger. The decision was made to place a sc rew. An x-ray was taken after the screw placement, which shows this is a little bit lateral, but fee ling along the posterior aspect of the acetabulum and hip does not demonstrate any protrusion of the screw. The liner was then placed and the broach was then used to broach up to the neck size, which w as very tight and decision made to stop here. It was then trialed with a high offset neck. It was t hen relocated and found that we can reduce it. The final stem was in place, also appears to be very tight and appropriate, although may look even a little undersized on the x-ray. Placing a next highe r broach would probably cause more difficulty, therefore we would continue with this and the final st em was then trialed with a +4. The +4 appeared to be the most appropriate, may have a little bit ext ra leg length, but given the patient's age of 77, I felt the stability would be better. The final ba ll was then gently tapped into place and reduced and now comes to full extension. It is stable to ov er 90 degrees of flexion with internal rotation to at least 30 degrees and full adduction. The wound was copiously irrigated and the external rotators were repaired back to the greater trochanter via b one tunnels. It was again irrigated and the fascia was then closed in a watertight fashion using hea vy Vicryl sutures. It was again irrigated and skin was closed using 2-0 Vicryl sutures followed by s taples and covered with Aquacel. Patient was then awakened and taken to recovery room in good condit ion. There were no complications. SE/MODL Voice ID: [id number] Report ID: [id number]
[2023-06-04 04:24] LABS: Hematocrit 35.8 % (39.6-49.0); Hemoglobin 12.3 g/dL (13.6-17.9)
--- NOTE | 2023-06-04 05:22 | P.PN ---
Subjective Date of Service: 06/04/23 Chief Complaint: Right total hip arthroplasty Status post left hip arthroplasty, pain controlled with as needed analgesics, afebrile, plan to ambulate with physical therapy today General: Alert, In no apparent distress, Oriented x3 HEENT: Atraumatic, PERRLA, Mucous membr. moist/pink, EOMI, Sclerae nonicteric Neck: Supple, 2+ carotid pulse no bruit, No LAD, Without JVD or thyroid abnormality Respiratory: Clear to auscultation bilaterally, Normal air movement Cardiovascular: Regular rate/rhythm, Normal S1 S2, No murmurs Gastrointestinal: Normal bowel sounds, Soft and benign, Non-distended, No tenderness Musculoskeletal: No clubbing, No tenderness, Swelling, Tenderness Integumentary: No rashes Neurological: Normal gait, Normal speech, Normal tone, Sensation intact, Cranial nerves 3-12 intact, Normal affect, Abnormal strength Lymphatics: No axilla or inguinal lymphadenopathy Review of Systems per HPI Physical Examination - Vital Signs Temperature: 97.3 F Blood Pressure: 129/77 Pulse: 76 Respirations: 16 Pulse Ox (%): 95 - Studies Laboratory Data (last 24 hrs) 06/04/23 06/03/23 06/03/23 03:29 16:34 10:24 Hgb 12.3 L D 14.1 14.1 Hct 35.8 L 41.0 41.2 Assessment And Plan - Plan - Problems (1) Status post total hip replacement, right Current Visit: Yes Status: Acute 3/5 Status post right hip arthroplasty Dr. Pedro (2) History of hypertension Current Visit: Yes Status: Acute (3) History of BPH Current Visit: Yes Status: Acute (4) Dyslipidemia Current Visit: Yes Status: Acute Conclusions/ Impression: Plan: 1. Continue with pain control and anticoagulation for DVT prophylaxis 2. Physical therapy evaluation 3. [facility] to [facility] for outpatient physical therapy 4. Strict blood pressure and statin therapy 5. Resume antiplatelet therapy in the morning 6. Continue with BPH treatment 7. GI DVT prophylaxis Critical Care: No Disposition Home with physical therapy outpatient Discharge Plan: Home - Code Status/Comfort Care Code Status: Full Code Critical Care: No Time Spent Managing PTS Care (In Minutes): 35
[2023-06-04] MEDS ORDERED: CYCLOBENZAPRINE 10 MG TAB PO PRN (05:34)
[2023-06-04] MEDS ORDERED: MONTELUKAST 10 MG TAB PO PRN (08:16)
[2023-06-04] MEDS: carvediloL 6.25 MG TAB PO SCH (08:53)
[2023-06-04] MEDS: ASPIRIN 81 MG CHEWABLE TABLET PO SCH (08:53)
[2023-06-04] MEDS: ENOXAPARIN 40 MG/0.4 ML SQ SCH (08:53)
[2023-06-04] MEDS: AMLODIPINE 5 MG TAB PO SCH (08:53)
[2023-06-04] MEDS: TAMSULOSIN 0.4 MG SR CAP PO SCH (08:53)
[2023-06-04] MEDS: DUTASTERIDE 0.5 MG GEL CAP PO SCH (08:55)
[2023-06-04 08:57] VITALS: O2SAT 96
[2023-06-04] MEDS ORDERED: HOME MED 1 EA UNK (Simvastatin [Simvastatin] 20 MG Tablet) PO SCH (09:00)
[2023-06-04 09:25] VITALS: BP 135/71; TEMP 98.1
[2023-06-04 11:11] LABS: Absolute Lymphocytes (CBC) 1.5 K/uL (0.7-4.9); Basophils % 0.4 % (0-1.3); Eosinophils % 0.1 % (0-4.4); Hematocrit 34.6 % (39.6-49.0); Hemoglobin 11.9 g/dL (13.6-17.9); Lymphocytes % 14.6 % (15.3-44.8); MCV 83.5 fL (80-100); MPV 8.7 fL (7.6-11.3); Platelets 167 thou/uL (152-406); RBC Red Blood Cell Count 4.15 M/uL (4.33-5.43)
[2023-06-04 11:25] LABS: Anion Gap 10.3 mEq/L (5.0-15.0); Potassium 4.3 mEq/L (3.5-5.1)
--- NOTE | 2023-06-04 14:16 | P.DS ---
Admission Date: 06/03/23 Discharge Date: 06/04/23 Disposition: DC HOME/HOME HEALTH CARE Reason for Admission: Right total hip arthroplasty Brief History of Present Illness: 77-year-old gentleman who came to the hospital with right hip arthritis. Patient was taken to the OR and had a right total hip arthroplasty. Patient has done well postoperatively. Patient's history of hypertension, dyslipidemia, and benign prostatic hypertrophy. Patient will be admitted to the hospital for further evaluation. Patient is planning to do physical therapy at discharge as an outpatient. Continue with inpatient physical therapy, and we will see how patient progresses. General: Alert, In no apparent distress, Oriented x3 HEENT: Atraumatic, PERRLA, Mucous membr. moist/pink, EOMI, Sclerae nonicteric Neck: Supple, 2+ carotid pulse no bruit, No LAD, Without JVD or thyroid abnormality Respiratory: Clear to auscultation bilaterally, Normal air movement Cardiovascular: Regular rate/rhythm, Normal S1 S2, No murmurs Gastrointestinal: Normal bowel sounds, Soft and benign, Non-distended, No tenderness Musculoskeletal: No clubbing, No tenderness, Swelling, Tenderness Integumentary: No rashes Neurological: Normal gait, Normal speech, Normal tone, Sensation intact, Cranial nerves 3-12 intact, Normal affect, Abnormal strength Lymphatics: No axilla or inguinal lymphadenopathy Hospital Course: 77 year-old male patient presented with right hip arthritis. Was evaluated by Dr. Pedro is status post right hip arthroplasty. Plan to follow-up with outpatient physical therapy. Condition improved with as needed analgesics, PT evaluation. Patient tolerating diet, stable for discharge to home with follow-up appointment with primary care physician, follow-up with orthopedic surgery after discharge PROBLEM: Right hip arthritis Status post right hip arthroplasty Dr. Pedro Follow-up with Dr. Pedro after discharge As needed analgesics per Dr. Pedro Take p.o. stool softeners for constipation Physical therapy outpatient Continue home medicines as previously prescribed GOAL: Clear understanding of disease process INSTRUCTIONS: Physician Discharge Instructions: -Follow-up with PCP in 1 to 2 weeks -Please call Dr. Henley at [phone] if any questions regarding hospital stay -Please call nursing station at [phone] if any nursing or medication questions -Return to the emergency room if symptoms worsen Diet: ADA, low sodium Activity: Fall precautions Vital Signs/Physical Exam: Temp Pulse Resp BP Pulse Ox 98.1 F 67 17 135/71 0 L 06/04/23 09:13 06/04/23 09:13 06/04/23 09:13 06/04/23 09:13 06/04/23 09:13 Laboratory Data at Discharge: WBC 10.50 thou/uL (4.3-10.9) 06/04/23 11:02 Hgb 11.9 g/dL (13.6-17.9) L 06/04/23 11:02 Hct 34.6 % (39.6-49.0) L 06/04/23 11:02 Plt Count 167 thou/uL (152-406) 06/04/23 11:02 PT 11.1 SECONDS (9.5-12.5) 05/29/23 10:02 INR 1.01 05/29/23 10:02 APTT 40.5 SECONDS (24.3-36.9) H 05/29/23 10:02 Sodium 133 mEq/L (136-145) L 06/04/23 11:02 Potassium 4.3 mEq/L (3.5-5.1) 06/04/23 11:02 BUN 39 mg/dL (7-18) H 06/04/23 11:02 Creatinine 1.84 mg/dL (0.70-1.30) H 06/04/23 11:02 Glucose 133 mg/dL (74-106) H 06/04/23 11:02 Total Bilirubin 0.7 mg/dL (0.2-1.0) 05/29/23 10:02 AST 17 U/L (15-37) 05/29/23 10:02 ALT 26 U/L (16-61) 05/29/23 10:02 Alkaline Phosphatase 71 U/L (45-117) 05/29/23 10:02 Home Medications: Amlodipine Besylate 5 mg PO DAILY 05/29/23 Aspirin Chewable [Aspirin Chewable*] 81 mg PO DAILY 05/29/23 Dutasteride [Avodart*] 0.5 mg PO DAILY 05/29/23 Montelukast Sodium [Singulair] 10 mg PO DAILY PRN 05/29/23 Simvastatin 20 mg PO DAILY 05/29/23 Tamsulosin HCl 1 cap PO DAILY 05/29/23 carvediloL [Coreg*] 6.25 mg PO BID 05/29/23 Docusate [Colace Cap*] 100 mg PO DAILY PRN #30 cap 06/04/23 New Medications: Docusate [Colace Cap*] 100 mg PO DAILY PRN #30 cap PRN Reason: Constipation Physician Discharge Instructions: Dr. Pedro's office arranged: [facility] [place] P:[phone] F:[phone] -NE IV and DC home -Follow-up with PCP in 1 to 2 weeks -Follow-up with Orthopedics next week -Please call Dr. Henley at [phone] if any questions regarding hospital stay -Please call nursing station at [phone] if any nursing or medication questions -Return to the emergency room if symptoms worsen Diet: AHA Activity: Fall precautions Followup: Austin Pedro MD [ACTIVE - CAN ADMIT] - 1-2 Weeks Abdiel Foote MD [Primary Care Provider] - Time spent managing pt's care (in minutes): 55
[2023-06-04] MEDS ORDERED: ATORVASTATIN 10 MG TAB PO SCH (21:00)
== END 2023-06-04 12:31 | disposition home health service (06) ==
LOC: OR 06:02 → 2ND 09:34
PROVIDERS: ADMIT Orthopaedic Surgery; ATTEND Orthopaedic Surgery
PROC: 0SR90JA Replacement of Right Hip Joint with Synthetic Substitute, Uncemented, Open Approach (ICD-10-PCS; principal; 2023-06-03 07:00)
DX: M16.11 Unilateral primary osteoarthritis, right hip (principal); I10 Essential (primary) hypertension; E78.5 Hyperlipidemia, unspecified; N40.0 Benign prostatic hyperplasia without lower urinary tract symptoms
CPT/HCPCS: 93005; 85025 ×2; 80048; 36415 ×2; 85610; 88304; 88311; 85730; 85018 ×3; 85014 ×3; 81003; 80053; 71046; 73501; 97116 ×2; 97161; 97530; 94760; 27130; J2704; J2001 ×2; J1650; J0171; J2405; J7120 ×2; J0690 ×3; G0378; G0379